=== PATIENT | female | born 1985 | race Caucasian/White ===

== ENCOUNTER 2017-01-01 16:29 | Emergency (ER) | payer OTHER | END 2017-01-01 18:18 | disposition home or self-care (01) | LOC: ER1 16:29 | DX: R00.2 Palpitations (principal) | CPT/HCPCS: 71020; 84703; 93005; 99285 ==

== ENCOUNTER → 2017-02-12 | Outpatient (CLI) | payer OTHER ==
[2017-02-12 12:14] LABS: HEMOGLOBIN 12.9 gm/dl (12.3-15.3); RED BLOOD COUNT 4.52 M/UL (4.00-5.10); WHITE BLOOD COUNT 6.2 K/UL (4.5-11.0)
[2017-02-12 12:29] LABS: BUN/CREATININE RATIO 20 (0-10)
== END ==
LOC: LAB 11:03
PROVIDERS: Internal Medicine Cardiovascular Disease
DX: R00.2 Palpitations (principal); E78.00 Pure hypercholesterolemia, unspecified
CPT/HCPCS: 36415; 80053; 80061; 84443; 85025

== ENCOUNTER → 2017-02-12 | Outpatient (CLI) | payer OTHER | LOC: HEART 5 10:03 | DX: R55 Syncope and collapse (principal); R00.2 Palpitations ==

== ENCOUNTER 2017-03-07 15:29 | Emergency (ER) | payer BC, OTHER ==
[2017-03-07 17:39] LABS: HEMOGLOBIN 13.9 gm/dl (12.3-15.3); RED BLOOD COUNT 4.91 M/UL (4.00-5.10); WHITE BLOOD COUNT 10.4 K/UL (4.5-11.0)
[2017-03-07 17:56] LABS: BUN/CREATININE RATIO 20 (0-10)
== END 2017-03-07 21:20 | disposition home or self-care (01) ==
LOC: ER1 15:29
PROVIDERS: Nurse Practitioner Family
DX: N83.201 Unspecified ovarian cyst, right side (principal); K21.9 Gastro-esophageal reflux disease without esophagitis; E78.5 Hyperlipidemia, unspecified; Z88.1 Allergy status to other antibiotic agents; Z90.49 Acquired absence of other specified parts of digestive tract; Z79.899 Other long term (current) drug therapy
CPT/HCPCS: 36415; 80053; 81001; 82150; 83690; 84703; 85025; 87086; 99284; J7050; Q9962

== ENCOUNTER → 2017-03-07 | Outpatient (CLI) | payer BC, OTHER | LOC: ECHO 13:00 → HEART 5 03-15 15:30 | DX: R00.2 Palpitations (principal); R55 Syncope and collapse; R53.83 Other fatigue; R42 Dizziness and giddiness; R06.00 Dyspnea, unspecified | CPT/HCPCS: ECHO; 93306 ==

== ENCOUNTER → 2017-07-09 | Outpatient (CLI) | payer BC, OTHER | LOC: KOH-I 15:53 | DX: R22.2 Localized swelling, mass and lump, trunk (principal) | CPT/HCPCS: 71020 ==

== ENCOUNTER 2022-01-19 01:02 | Emergency (ER) | payer OTHER ==
[~2022-01-19 01:02] MED LIST: ANTIVERT 25MG T25 MG PO; ZOFRAN ODT 4 MG4 MG GT
[2022-01-19] MEDS ORDERED: BENADRYL 50MG C50 MG PO (02:23)
[2022-01-19] MEDS ORDERED: PREDNISONE 50 M50 MG PO (02:23)
[2022-01-19] MEDS ORDERED: PEPCID20 MG PO (02:23)
== END 2022-01-19 03:28 | disposition home or self-care (01) ==
LOC: ER1 01:02
DX: L50.0 Allergic urticaria (principal); T46.7X5A Adverse effect of peripheral vasodilators, initial encounter; Z91.012 Allergy to eggs; Z88.8 Allergy status to other drugs, medicaments and biological substances; E78.5 Hyperlipidemia, unspecified
CPT/HCPCS: 96365; 96375; 99284; J1200; J2930

== ENCOUNTER → 2022-02-23 | Day surgery (SDC) | payer OTHER ==
[~2022-02-23] MED LIST changes: +BENADRYL 50MG C50 MG PO; +PEPCID20 MG PO; +PREDNISONE 50 M50 MG PO
== END | disposition home or self-care (01) ==
LOC: OR 02-22 13:15
DX: K62.5 Hemorrhage of anus and rectum (principal); K22.70 Barrett's esophagus without dysplasia; K44.9 Diaphragmatic hernia without obstruction or gangrene; K26.3 Acute duodenal ulcer without hemorrhage or perforation; K64.4 Residual hemorrhoidal skin tags; K31.9 Disease of stomach and duodenum, unspecified; K60.2 Anal fissure, unspecified; S31.831A Laceration without foreign body of anus, initial encounter; K21.00 Gastro-esophageal reflux disease with esophagitis, without bleeding; X58.XXXA Exposure to other specified factors, initial encounter; Z88.1 Allergy status to other antibiotic agents; Z88.5 Allergy status to narcotic agent; Z88.8 Allergy status to other drugs, medicaments and biological substances; Z79.899 Other long term (current) drug therapy
CPT/HCPCS: 84703; J2250; J2704; J3010; J7040